=== PATIENT | male | born 1980 | race Two or more races ===

== ENCOUNTER 2021-02-23 07:38 | Emergency (ER) | payer SELFPAY ==
[~2021-02-23] VITALS: Ht 177.8 cm; Wt 90.7 kg
[2021-02-23] MEDS ORDERED: LIDOCAINE /MPF 1% VIAL 5 ML VIAL ONE (08:23)
--- NOTE | 2021-02-23 10:09 | NUR ---
SEEN AND EVALUATED BY DR TEJEDA. LACERATION REPAIR DONE. 3 SUTURES NOTED, PT PROVIDED W/ WOUND CARE. DISCHARGE IN STABLE CONDITION.
[2021-02-23 10:10] VITALS: BP 146/84
== END 2021-02-23 10:11 | disposition home or self-care (01) ==
LOC: ER 07:47
DX: S61.217A Laceration without foreign body of left little finger without damage to nail, initial encounter (principal); W26.9XXA Contact with unspecified sharp object(s), initial encounter; Y93.89 Activity, other specified; Y92.89 Other specified places as the place of occurrence of the external cause; Y99.8 Other external cause status
CPT/HCPCS: 12001; 99282; A6403; J3490